=== PATIENT | female | born 1985 | race Native Hawaiian/Other Pacific Islander ===

== ENCOUNTER 2022-11-18 08:27 | Outpatient (CLI) | payer BC, SELFPAY | END 2022-11-18 08:28 | disposition home or self-care (01) | PROVIDERS: PCP Nurse Practitioner Family; Visit Provider Nurse Practitioner Family | DX: E13.9 Other specified diabetes mellitus without complications (principal); E87.5 Hyperkalemia; E78.5 Hyperlipidemia, unspecified; I10 Essential (primary) hypertension; E66.9 Obesity, unspecified | CPT/HCPCS: 80053; 80061; 82043; 82570 ==

== ENCOUNTER 2023-06-16 08:13 | Outpatient (CLI) | payer BC, SELFPAY | END 2023-06-16 08:14 | disposition home or self-care (01) | PROVIDERS: PCP Nurse Practitioner Family; Visit Provider Nurse Practitioner Family | DX: Z00.00 Encounter for general adult medical examination without abnormal findings (principal); E87.5 Hyperkalemia; E66.9 Obesity, unspecified; I10 Essential (primary) hypertension; E13.9 Other specified diabetes mellitus without complications | CPT/HCPCS: 80053; 80061 ==

== ENCOUNTER 2024-02-10 13:19 | Outpatient (CLI) | payer BC, SELFPAY ==
--- OUTSIDE RECORDS SUMMARY | 2024-02-10 13:24 | XMS_ITS | Clinical Summary ---
Author Organization [facility] Address [address] [place] [address] Care Team Providers Care Childhood Teacher Name Role Phone None Reported, Pcp Primary Care Provider Unavail able Source Comments Patient records contain information from all sites at [facility]. For routine questions regarding patient records, call [phone] during business hours, M-F 8:00 AM - 5:00 PM Central Time. Record requests for emergency care only can be directed to [phone] at any time.[facility] Allergies Active Allergy Reactions Criticality Noted Date Comments Latex, Natural Rubber Hives (Reselect Reaction),Edema (Reselect Reaction) 07/31/2017 Sulfa (Sulfonamide Antibiotics) Hives (Reselect Reaction) Medium 07/31/2017 Medications Medication Sig Dispensed Refills Start Date End Date Status naproxen (NAPROSYN) 500 mg tablet Take 500 mg by mouth. 06/09/2011 Active propranoloL (INDERAL) 20 mg tablet Take 20 mg by mouth 2 (two) times a day. Active rosuvastatin (CRESTOR) 5 mg tablet Take 5 mg by mouth daily. Active metFORMIN (FORTAMET) 1,000 mg 24 hr tablet Take 2,000 mg by mouth daily with breakfast. Active insulin degludec (Tresiba FlexTouch U-100) 100 unit/mL (3 mL) injection Inject 32 Units under the skin at bedtime. Active insulin lispro 100 unit/mL injection Inject 3 Units under the skin 3 (three) times a day with meals. 3units per carb choice Active levocetirizine (XYZAL) 5 mg tablet Take 5 mg by mouth every evening. Active tamsulosin (FLOMAX) 0.4 mg 24 hr capsule Take 1 capsule (0.4 mg total) by mouth daily. 7 capsule 04/01/2022 Active gabapentin (NEURONTIN) 300 mg capsule Take 1 capsule by mouth 3 (three) times a day with meals. 07/21/2023 Active cyclobenzaprine (FLEXERIL) 10 mg tablet Take 10 mg by mouth at bedtime as needed. 07/20/2023 Active FreeStyle Lyric 3 Sensor device 4 (four) times a day. 07/18/2023 Active HYDROcodone-acetamino phen (NORCO) 5-325 mg per tablet Take 1-2 tablets by mouth. for pain 07/08/2023 Active ibuprofen (MOTRIN) 800 mg tablet Take 1 tablet by mouth every 8 (eight) hours as needed for pain. 07/09/2023 Active Lantus Solostar U-100 Insulin 100 unit/mL (3 mL) injection Inject 30 Units under the skin at bedtime. 07/26/2023 Active Active Problems No known active problems Social History Tobacco Use Types Packs/Day Years Used Date Smoking Tobacco: Never Smokeless Tobacco: Never Tobacco Cessation:Counseling Given: Not Answered Alcohol Use Standard Drinks/Week Comments Not Currently 0 (1 standard drink = 0.6 oz pur e alcohol) Rarely Nutrition Answer Date Recorded Nutrition: EVOO Fat Source Unknown 11/24 Nutrition: Servings of Fruits/Vegetables per Day Not on file 11/24/2020 Dental Answer Date Recorded Dental: Regular Dentist Unknown 11/26/19 21 Sex and Gender Information Value Date Recorded Sex Assigned at Not on file Gender Identity Not on file Sexual Orientation Not on file Last Filed Vital Signs Vital Sign Reading Time Taken Comments Blood Pressure 139/97 2023 8:40 PM MAIL LIST PROCESSOR Pulse 58 2023 8:40 PM MAIL LIST PROCESSOR Temperature 36.6 ??C (97.9 ??F) 2023 8:40 PM CS T Respiratory Rate 20 2023 8:40 PM MAIL LIST PROCESSOR Oxygen Saturation 93% 2023 8:40 PM MAIL LIST PROCESSOR Inhaled Oxygen Concentration - - Weight 84.3 kg (185 lb 12.8 oz) 2023 8:27 PM MAIL LIST PROCESSOR Height 152.4 cm (5') 2023 8:27 PM MAIL LIST PROCESSOR Body Mass Index 36.29 2023 8:27 PM MAIL LIST PROCESSOR Plan of Treatment Health Maintenance Due Date Last Done Comments Cervical Cancer Screening 1984 HIV Screening 1984 Hepatitis C Screening 1984 Lipid (Cholesterol) Screening 1984 Hepatitis B Vaccines (1 of 3 - 19+ 3-dose series) 2003 COVID-19 Vaccine (4 - 2022-2 4 season) 2023 07/25/2021, 11/11/2020, 10/14/2020 Influenza Vaccine (#1) 2023 , 04/30/2020, 07/01/2019 Depression Screening (Annual PHQ-2) 09/19/2023 DTaP,Tdap,and Td Vaccines (2 - Td or Tdap) 02/10/2031 02/10/2021 HPV Vaccines Aged Out No longer eligi ble based on patient's age to complete this topic Pneumococcal vaccine (0-64 years) Aged Out No longer eligible b ased on patient's age to complete this topic Care Teams Childhood Teacher Relationship Specialty Start Date End Date None Reported, Pcp PCP - General Family Medicine 08/03/23
--- OUTSIDE RECORDS SUMMARY | 2024-02-10 13:24 | XMS_ITS | Referral Summary ---
Author Organization [facility] Address [address] [place] [id number] Care Team Providers Care Layup Worker Name Role Phone None Reported, Pcp Primary Care Provider Unavail able Source Comments Patient records contain information from all sites at [facility]. For routine questions regarding patient records, call [phone] during business hours, M-F 8:00 AM - 5:00 PM Central Time. Record requests for emergency care only can be directed to [phone] at any time.[facility] Allergies Active Allergy Reactions Criticality Noted [...] Comments Blood Pressure 139/97 2023 8:40 PM CONSULTING GROUP ANALYST Pulse 58 2023 8:40 PM CONSULTING GROUP ANALYST Temperature 36.6 ??C (97.9 ??F) 2023 8:40 PM CS T Respiratory Rate 20 2023 8:40 PM CONSULTING GROUP ANALYST Oxygen Saturation 93% 2023 8:40 PM CONSULTING GROUP ANALYST Inhaled Oxygen Concentration - - Weight 84.3 kg (185 lb 12.8 oz) 2023 8:27 PM CONSULTING GROUP ANALYST Height 152.4 cm (5') 2023 8:27 PM CONSULTING GROUP ANALYST Body Mass Index 36.29 2023 8:27 PM CONSULTING GROUP ANALYST Plan of Treatment Not on file Care Teams Layup Worker Relationship Specialty Start Date End Date None Reported, Pcp PCP - General Family Medicine 08/03/23
--- OUTSIDE RECORDS SUMMARY | 2024-02-10 13:24 | XMS_ITS ---
Author Organization [facility] Address [address] [place] [address] Care Team Providers Care Account Manager Relief Name Role Phone Unavailable Unavailable Unavailable Surgery Details Not on file Complications Check Surgery Details section. Procedure Estimated Blood Loss Check Surgery Details section. Procedure Findings Check Surgery Details section. Procedure Specimens Taken Check Surgery Details section.
--- OUTSIDE RECORDS SUMMARY | 2024-02-10 13:24 | XMS_ITS | Clinical Summary ---
Author Organization [facility] [facility] Address [place], [place] [address] Care Team Providers Care Maintenance Inspector Name Role Phone Lisa Rios Primary Primary Care Provider Unavailabl e Allergies Active Allergy Reactions Criticality Noted Date Comments Latex Hives 06/09/2011 Sulfa (Sulfonamide Antibiotics) Hives 06/15/2018 Hands swell up and hives on palms. Medications Medication Sig Dispensed Refills Start Date End Date Status naproxen (NAPROSYN) 500 mg tablet Take 1 tablet by mouth 2 times daily with meals. 30 tablet 0 06/09/2011 Active propranolol (INDERAL) 20 mg tablet Take 1 tablet by mouth 2 times daily. 4 06/06/2018 Active metFORMIN (GLUCOPHAGE) 500 mg tablet Take 1,000 mg by mouth 2 times daily with meals. Active glipiZIDE (GLUCOTROL) 10 mg tablet Take 1 tablet by mouth 2 times daily before meals. 10 04/18/2018 Active ranitidine (ZANTAC) 150 mg tablet Take 150 mg by mouth one time if needed. Active Social History Tobacco Use Types Packs/Day Years Used Date Smoking Tobacco: Never Smokeless Tobacco: Never Alcohol Use Standard Drinks/Week Comments Not Asked 0 (1 standard drink = 0.6 oz pur e alcohol) Sex and Gender Information Value Date Recorded Sex Assigned at Not on file Gender Identity Not on file Sexual Orientation Not on file Obstetrics History Last Filed Vital Signs Vital Sign Reading Time Taken Comments Blood Pressure 129/96 06/15/2018 4:30 PM CDT Pulse 98 06/15/2018 4:30 PM CDT Temperature 37 ??C (98.6 ??F) 06/15/2018 4:30 PM CDT Respiratory Rate 16 06/15/2018 4:30 PM CDT Oxygen Saturation 98% 06/15/2018 4:30 PM CDT Inhaled Oxygen Concentration - - Weight 78.4 kg (172 lb 14.4 oz) 06/15/2018 4:30 PM CDT Height - - Body Mass Index - - Plan of Treatment Health Maintenance Due Date Last Done Comments Tdap 1995 Depression screening for age 12+ 1996 HIV for age 15-65 1999 BMI (ht and wt on same day) for age 18+ 2002 Hepatitis C screening for age 18-79 2002 Tetanus booster 2004 Pap test for age 21-65 11/05/2022 0, 11/05/2019, 09/03/2015, Additional history exists COVID-19 vaccine series (2022-24 season) 2023 Influenza for age 9-49 05/20/2024 Pneumococcal series for age 6-64 Aged Out No longer eligible based on patient's age to complete this topic Procedures Procedure Name Priority Date/Time Associated Diagnosis Comments SHEAR SETTER THIN PREP PAP SCREEN IMAGED Routine 11/05/2019 10:15 AM ENGRAVER OPTICAL FRAMES from Last 3 Months or Most Recently Relevant to Health Maintenance Results * SHEAR SETTER THIN PREP PAP SCREEN IMAGED (11/05/2019 10:15 AM ENGRAVER OPTICAL FRAMES) Case Report Gynecologic Cytology Report ? Case: [id number] ? Authorizing Provider: ??Yomaira Chavis NP ? Collected: ? 11/05/2019 1015 ? Ordering Location: ? [facility] ?Received: ?11/06/2019 0959 ? First Screen: ?Mookie Yoon ? Specimen: ?SHEAR SETTER ThinPrep Vial Screening, Cervical/Vaginal ? 11/14/2019 12:34 PM [facility] INTERPRETATION/ RESULT NEGATIVE FOR INTRAEPITHELIAL LESION OR MALIGNANCY (NIL) (none) 11/14/2019 12:34 PM [facility] IMEN ADEQUACY Satisfactory for evaluation Endocervical component present 11/14/2019 12:34 PM [facility] HPV REQUEST HPV and PAP 11/14/2019 12:34 PM [facility] Date of LMP 10/10/2019 11/14/2019 12:34 PM [facility] Last Pap Date 09/03/2015 11/14/2019 12:34 PM [facility] Last Pap Result NIL 0 12:34 PM [facility] Comment:-HPV Additional Information 11/14/2019 12:34 PM [facility] Comment: Interpreted at [facility] - [address] [place] [address], [place] [address] Automated Review Successful 11/14/2019 12:34 PM [facility] Comment:Specimen processed s uccessfully by automated general ledger bookkeeper device, ThinPrep Imaging System, [employer] ANCILLARY TESTING SHEAR SETTER HPV Ordered, Please see separate report 11/14/2019 12:34 PM [facility] Note The pap test is a screening technique, not a diagnostic procedure. It is used primarily to screen for squamous cancers and precursor lesions. Published studies have shown that it is subject to both false negative and false positive results. The pap test should not be used as the sole means to diagnose or exclude pre-malignant and malignant lesions. 11/14/2019 12:34 PM ENGRAVER OPTICAL FRAMES [facility] Other (Cervical/Vagina l) 11/05/2019 10:15 AM ENGRAVER OPTICAL FRAMES 11/06/2019 9:59 AM ENGRAVER OPTICAL FRAMES Yomaira Chavis NP PATHOLOGY/CYTOLOGY [facility] [address] [place] [address], [place] from Last 3 Months or Most Recently Relevant to Health Maintenance Care Teams Maintenance Inspector Relationship Specialty Start Date End Date , No Primary . PCP - General 02/06/10
== END 2024-02-10 13:20 | disposition home or self-care (01) ==
LOC: LKVREF 13:22
PROVIDERS: PCP Nurse Practitioner Family; Visit Provider Family Medicine
DX: Z13.29 Encounter for screening for other suspected endocrine disorder (principal)
CPT/HCPCS: 84439

== ENCOUNTER 2024-05-15 10:43 | Outpatient (CLI) | payer BC, SELFPAY ==
--- OUTSIDE RECORDS SUMMARY | 2024-05-15 10:47 | XMS_ITS | Clinical Summary ---
Author Organization [facility] Address [place], [place] [address] Care Team Providers Care Fish Straightener Name Role Phone Lisa Rios Primary Primary [...] Procedure Name Priority Date/Time Associated Diagnosis Comments JUNIOR STAFF ACCOUNTANT THIN PREP PAP SCREEN IMAGED Routine 11/05/2019 10:15 AM FLOW FLOOR ATTENDANT from Last 3 Months or Most Recently Relevant to Health Maintenance Results * JUNIOR STAFF ACCOUNTANT THIN PREP PAP SCREEN IMAGED (11/05/2019 10:15 AM FLOW FLOOR ATTENDANT) Case Report Gynecologic Cytology Report ? Case: [id number] ? Authorizing Provider: ??Yomaira Chavis NP ? Collected: ? 11/05/2019 1015 ? Ordering Location: ? [facility] ?Received: ?11/06/2019 0959 ? First Screen: ?Mookie Yoon ? Specimen: ?JUNIOR STAFF ACCOUNTANT ThinPrep Vial Screening, Cervical/Vaginal ? 11/14/2019 12:34 PM [facility] INTERPRETATION/ RESULT NEGATIVE FOR INTRAEPITHELIAL LESION OR MALIGNANCY (NIL) (none) 11/14/2019 12:34 PM [facility] IMEN ADEQUACY Satisfactory for evaluation Endocervical component present 11/14/2019 12:34 PM [facility] HPV REQUEST HPV and PAP 11/14/2019 12:34 PM [facility] Date of LMP 10/10/2019 11/14/2019 12:34 PM [facility] Last Pap Date 09/03/2015 11/14/2019 12:34 PM [facility] Last Pap Result NIL 0 12:34 PM [facility] Comment:-HPV Additional Information 11/14/2019 12:34 PM [facility] Comment: Interpreted at [facility] - [address] [place] [address], [place] [address] Automated Review Successful 11/14/2019 12:34 PM [facility] Comment:Specimen processed s uccessfully by automated milk delivery driver device, ThinPrep Imaging System, [employer] ANCILLARY TESTING JUNIOR STAFF ACCOUNTANT HPV Ordered, Please see separate report 11/14/2019 12:34 PM [facility] Note The pap test is [...] pre-malignant and malignant lesions. 11/14/2019 12:34 PM FLOW FLOOR ATTENDANT [facility] Other (Cervical/Vagina l) 11/05/2019 10:15 AM FLOW FLOOR ATTENDANT 11/06/2019 9:59 AM FLOW FLOOR ATTENDANT Yomaira Chavis NP PATHOLOGY/CYTOLOGY [facility] [address] [place] [address], [place] from Last 3 Months or Most Recently Relevant to Health Maintenance Care Teams Fish Straightener Relationship Specialty Start Date End Date , No Primary . PCP - General 02/06/10
== END 2024-05-15 10:44 | disposition home or self-care (01) ==
PROVIDERS: PCP Nurse Practitioner Family; Visit Provider Family Medicine
DX: H53.2 Diplopia (principal); G43.909 Migraine, unspecified, not intractable, without status migrainosus
CPT/HCPCS: 80048; 83520; 86041; 86042; 86366

== ENCOUNTER 2024-06-20 21:49 | Outpatient (REF) | payer BC, SELFPAY ==
--- OUTSIDE RECORDS SUMMARY | 2024-06-20 21:52 | XMS_ITS | Clinical Summary ---
Author Organization [facility] Address [place], [place] [address] Care Team Providers Care Hat Presser Name Role Phone Lisa Rios Primary Primary [...] 09/03/2015, Additional history exists COVID-19 vaccine series (2023-25 season) 2024 Influenza for age 9-49 05/20/2024 Pneumococcal series for age 6-64 Aged Out No longer eligible based on patient's age to complete this topic Procedures Procedure Name Priority Date/Time Associated Diagnosis Comments BUILDING ENERGY CONSULTANT THIN PREP PAP SCREEN IMAGED Routine 11/05/2019 10:15 AM GEAR HOBBER SET UP OPERATOR from Last 3 Months or Most Recently Relevant to Health Maintenance Results * BUILDING ENERGY CONSULTANT THIN PREP PAP SCREEN IMAGED (11/05/2019 10:15 AM GEAR HOBBER SET UP OPERATOR) Case Report Gynecologic Cytology Report ? Case: [id number] ? Authorizing Provider: ??Yomaira Chavis NP ? Collected: ? 11/05/2019 1015 ? Ordering Location: ? [facility] ?Received: ?11/06/2019 0959 ? First Screen: ?Mookie Yoon ? Specimen: ?BUILDING ENERGY CONSULTANT ThinPrep Vial Screening, Cervical/Vaginal ? 11/14/2019 12:34 PM [facility] INTERPRETATION/ RESULT NEGATIVE FOR INTRAEPITHELIAL LESION OR MALIGNANCY (NIL) (none) 11/14/2019 12:34 PM [facility] IMEN ADEQUACY Satisfactory for evaluation Endocervical component present 11/14/2019 12:34 PM [facility] HPV REQUEST HPV and PAP 11/14/2019 12:34 PM [facility] Date of LMP 10/10/2019 11/14/2019 12:34 PM [facility] Last Pap Date 09/03/2015 11/14/2019 12:34 PM [facility] Last Pap Result NIL 0 12:34 PM [facility] Comment:-HPV Additional Information 11/14/2019 12:34 PM [facility] Comment: Interpreted at [facility] - [address] [place] [address], [place] [address] Automated Review Successful 11/14/2019 12:34 PM [facility] Comment:Specimen processed s uccessfully by automated drivers' cash clerk device, ThinPrep Imaging System, [employer] ANCILLARY TESTING BUILDING ENERGY CONSULTANT HPV Ordered, Please see separate report 11/14/2019 12:34 PM [facility] Note The pap test [...] pre-malignant and malignant lesions. 11/14/2019 12:34 PM GEAR HOBBER SET UP OPERATOR [facility] Other (Cervical/Vagina l) 11/05/2019 10:15 AM GEAR HOBBER SET UP OPERATOR 11/06/2019 9:59 AM GEAR HOBBER SET UP OPERATOR Yomaira Chavis NP PATHOLOGY/CYTOLOGY [facility] [address] [place] [address], [place] from Last 3 Months or Most Recently Relevant to Health Maintenance Care Teams Hat Presser Relationship Specialty Start Date End Date , No Primary . PCP - General 02/06/10
[2024-06-20 23:28] LABS: Creatine Kinase* 28 U/L (41-117)
[2024-06-20 23:46] LABS: Vitamin D 25 Hydroxy* 25 ng/mL (30-80)
[2024-06-21 02:29] LABS: Vitamin B12* 719 pg/mL (243-894)
[2024-06-23 08:21] LABS: Anti-Nuclear Ab(ANA)IgG ELISA None Detected (None Detected)
[2024-06-23 08:59] LABS: Aldolase 2.6 U/L (1.2-7.6)
[2024-06-23 21:45] LABS: Anaplasma phagocyt PCR Not Detected; Babesia microti by PCR Not Detected; Babesia species by PCR Not Detected; Ehrlichia chaffeensis by PCR Not Detected; Ehrlichia ewingii/canis by PCR Not Detected; Ehrlichia muris-like by PCR Not Detected
[2024-06-24 15:37] LABS: MMA Vitamin B12 Status <0.10 umol/L (0.00-0.40)
== END 2024-06-20 21:50 | disposition home or self-care (01) ==
LOC: NPINS 21:49
PROVIDERS: PCP Nurse Practitioner Family; Visit Provider Physician Assistant
DX: H53.2 Diplopia (principal); H02.403 Unspecified ptosis of bilateral eyelids; R20.3 Hyperesthesia; R53.83 Other fatigue
CPT/HCPCS: 82085; 82306; 82550; 82607; 84443; 86038; 87468; 87469; 87484; 87798

== ENCOUNTER 2024-08-30 10:12 | Outpatient (CLI) | payer BC, SELFPAY | END 2024-08-30 10:13 | disposition home or self-care (01) | PROVIDERS: PCP Nurse Practitioner Family; Visit Provider Nurse Practitioner Family | DX: E78.5 Hyperlipidemia, unspecified (principal); E13.9 Other specified diabetes mellitus without complications; Z79.84 Long term (current) use of oral hypoglycemic drugs | CPT/HCPCS: 80061; 82043; 82570 ==

== ENCOUNTER 2025-07-02 15:31 | Outpatient (CLI) | payer BC, SELFPAY | END 2025-07-02 15:32 | disposition home or self-care (01) | PROVIDERS: PCP Nurse Practitioner Family; Visit Provider Family Medicine | DX: E11.9 Type 2 diabetes mellitus without complications (principal); E78.5 Hyperlipidemia, unspecified; Z79.4 Long term (current) use of insulin | CPT/HCPCS: 80048; 80061 ==